=== PATIENT | male | born 1975 | race African-American/Black ===

== ENCOUNTER 2022-01-27 08:30 | Emergency (ER) | payer OTHER ==
[~2022-01-27] VITALS: Ht 182.9 cm; Wt 95.3 kg
[2022-01-27] MEDS ORDERED: DOXYCYCLINE HY100 MG PO (11:17)
[2022-01-27] MEDS ORDERED: DOXYCYCLINE HYCLATE TABLET 100 MG TAB PO ONE (11:30)
== END 2022-01-27 11:29 | disposition home or self-care (01) ==
LOC: FSED 08:50
DX: M79.662 Pain in left lower leg (principal); B20 Human immunodeficiency virus [HIV] disease; F17.210 Nicotine dependence, cigarettes, uncomplicated
CPT/HCPCS: 93971; 99283

== ENCOUNTER 2022-02-24 08:41 | Emergency (ER) | payer OTHER ==
[~2022-02-24] VITALS: Ht 182.9 cm; Wt 95.3 kg
[~2022-02-24 08:41] MED LIST: DOXYCYCLINE HY100 MG PO
[2022-02-24] MEDS ORDERED: KETOROLAC TROMETHAMINE 30 MG/ML VIAL IM STA (09:18)
[2022-02-24] MEDS ORDERED: NAPROSYN500 MG PO (09:21)
[2022-02-24] MEDS ORDERED: CYCLOBENZAPRINE10 MG PO (09:23)
[2022-02-24] MEDS ORDERED: DEXAMETHASONE SOD PHOS INJ 4 MG/ML SDV IM ONE (09:30)
[2022-02-24] MEDS ORDERED: DEXAMETHASONE SOD PHOS INJ 4 MG/ML SDV ONE (09:37)
== END 2022-02-24 09:51 | disposition home or self-care (01) ==
LOC: FSED 09:08
DX: M54.16 Radiculopathy, lumbar region (principal); B20 Human immunodeficiency virus [HIV] disease; F17.210 Nicotine dependence, cigarettes, uncomplicated
CPT/HCPCS: 99282; J1100; J1885